=== PATIENT | female | born 1995 | race Caucasian/White ===

== ENCOUNTER → 2016-10-25 | Outpatient (CLI) | payer OTHER | LOC: NM 09:30 | DX: R11.0 Nausea (principal); R10.11 Right upper quadrant pain | CPT/HCPCS: 78226; A9537 ==

== ENCOUNTER → 2020-12-19 | Outpatient (CLI) | payer OTHER ==
[~2020-12-19] MED LIST: ZOFRAN4 MG PO
== END ==
LOC: NM 12-14 13:00
DX: R10.11 Right upper quadrant pain (principal); R11.0 Nausea
CPT/HCPCS: 78226; A9537